=== PATIENT | female | born 1935 | race Caucasian/White ===

== ENCOUNTER 2018-08-20 14:30 | Outpatient (RCR) | payer MEDICARE, SELFPAY | END 2018-08-20 14:31 | disposition home or self-care (01) | LOC: PT 14:30 | PROVIDERS: Visit Provider Internal Medicine | DX: M25.511 Pain in right shoulder (principal); M25.512 Pain in left shoulder | CPT/HCPCS: 97010; 97014; 97035; 97110; 97140; 97163; G0283 ==

== ENCOUNTER 2018-08-20 15:00 | Outpatient (RCR) | payer MEDICARE, SELFPAY | END 2018-08-20 15:01 | disposition home or self-care (01) | LOC: PT 15:00 | PROVIDERS: Visit Provider Physician Assistant | DX: Z98.890 Other specified postprocedural states (principal) | CPT/HCPCS: 97010; 97014; 97035; 97110; 97140; 97163; G0283 ==